=== PATIENT | female | born 1965 | race Caucasian/White ===

== ENCOUNTER → 2025-02-23 13:50 | Outpatient (REF) | payer BC, SELFPAY | LOC: HWRCS 13:50 | PROVIDERS: ATTENDING PHYSICIAN Family Medicine Sports Medicine | DX: R07.9 Chest pain, unspecified (principal) | CPT/HCPCS: 93306 ==

== ENCOUNTER → 2025-03-02 07:17 | Outpatient (REF) | payer BC, SELFPAY | LOC: RCS 07:17 | PROVIDERS: ATTENDING PHYSICIAN Family Medicine Sports Medicine | DX: Z87.891 Personal history of nicotine dependence (principal); R07.9 Chest pain, unspecified | CPT/HCPCS: 78452; 93017; A9500 ==

== ENCOUNTER → 2025-03-18 08:25 | Outpatient (REF) | payer BC, SELFPAY | LOC: HWRAD 08:25 | PROVIDERS: ATTENDING PHYSICIAN Family Medicine Sports Medicine | DX: Z87.891 Personal history of nicotine dependence (principal) | CPT/HCPCS: 71271 ==